=== PATIENT | female | born 1950 | race Caucasian/White ===

== ENCOUNTER 2021-01-22 06:45 | Day surgery (SDC) | payer MEDICARE, MEDICAID ==
[2021-01-22] VITALS (8 sets, daily range): BP systolic 100–128; BP diastolic 55–77
[~2021-01-22] VITALS: Ht 154.9 cm; Wt 83.9 kg
[~2021-01-22 06:45] MED LIST: ASPI81TA52 PO; BUPIVAcaine/PF 2.5 mg/ml (0.25%) 30ml vial ONE; DILT-103 PO; FLUT16SP26 NAS; FLUT1BLS3 PO; LEVA15HF6 PO; LEVO100T9 PO; LISI10TA27 PO; MONT10TA32 PO; MORP60TA77 PO; POTA8TAB3 PO; PREG75CA75 PO; TAMO20TA4 PO; TIOT4MIS2 PO; VENL75CA61 PO; clindamycin-Cleocin 900mg/D5W 50 ML IV ONE; famotidine 20mg tablet PO ONE; ringers solution, lacted 1,000 ML IV SCH
[2021-01-22 08:58] LABS: BASOPHILS # (AUTO) 0.1 X10'3 (0-0.2); BASOPHILS % (AUTO) 1.2 % (0-1); EOSINOPHILS # (AUTO) 0.5 X10'3 (0-0.9); LYMPHOCYTES % (AUTO) 25.5 % (21-51); MEAN CORPUSCULAR HEMOGLOBIN 29.2 PG (27.0-31.0); MEAN CORPUSCULAR HGB CONC 34.3 g/dL (33.0-36.5); MEAN CORPUSCULAR VOLUME 85.2 FL (78-98); MEAN PLATELET VOLUME 7.6 FL (7.4-10.4); MONOCYTES # (AUTO) 0.6 X10'3 (0-0.9); NEUTROPHILS # (AUTO) 4.6 X10'3 (1.8-7.7); NEUTROPHILS % (AUTO) 59.3 % (42-75); PRE OP HEMATOCRIT 33.7 % (35.0-45.0); PRE OP HEMOGLOBIN 11.5 g/dL (12.0-16.0); PRE OP PLATELET COUNT 280 X10'3 (140-440); RED BLOOD COUNT 3.95 X10'6 (4.20-5.60); RED CELL DISTRIBUTION WIDTH 14.7 % (11.5-14.5)
[2021-01-22 09:11] LABS: ALBUMIN 3.3 G/DL (3.4-5.0); ALKALINE PHOSPHATASE 97 IU/L (46-116); BLOOD UREA NITROGEN 20 MG/DL (7-18); BUN/CREATININE RATIO 28.6 (6.6-38.0); CALCIUM 8.3 MG/DL (8.5-10.1); CHLORIDE 105 MMOL/L (99-107); PRE OP ALT 15 U/L (30-65); PRE OP ANION GAP 8 (8-16); PRE OP AST 17 U/L (10-37); PRE OP BILIRUB, TOTAL 0.2 MG/DL (0.0-1.0); PRE OP GLUCOSE 95 MG/DL (70-104); PRE OP POTASSIUM 4.1 MMOL/L (3.4-5.1); PRE OP SODIUM 141 MMOL/L (135-145); TOTAL CARBON DIOXIDE 28.4 MMOL/L (24-32); TOTAL PROTEIN 6.5 G/DL (6.4-8.2); eGFR 83 ML/MIN
[2021-01-22] MEDS ORDERED: hydrALAZINE 20mg/ml inj. IV PRN (10:45)
[2021-01-22] MEDS ORDERED: acetaminophen 1,000mg/100ml IV 100 ML IV PRN (10:45)
[2021-01-22] MEDS ORDERED: ondansetron/PF 4mg/2ml inj IV PRN (10:45)
[2021-01-22] MEDS ORDERED: morphine 4 MG/ML inj SYRINge IV PRN (10:45)
[2021-01-22] MEDS ORDERED: labetalol 20mg/4ml (5mg/ml) syringe IV PRN (10:45)
[2021-01-22] MEDS ORDERED: morphine 2 MG/ML inj. syringe IV PRN (10:45)
[2021-01-22] MEDS ORDERED: meperidine/PF 25mg/ml syringe IV PRN (10:45)
[2021-01-22] MEDS ORDERED: HYDROmorphone/PF 0.2 MG/ML SYRINGE IV PRN ×2 (10:45)
[2021-01-22] MEDS ORDERED: ringers solution, lacted 1,000 ML IV SCH (10:45)
[2021-01-22] MEDS ORDERED: proCHLORperazine 10 MG/2 ml inj IV PRN (10:45)
[2021-01-22] MEDS ORDERED: fentaNYL/PF 50MCG/1 ML 2ML syringe ONE (10:48)
[2021-01-22] MEDS ORDERED: midazolam 1 mg/ML 2ml injection ONE (10:51)
[2021-01-22] MEDS ORDERED: LIDOcaine 0.5% (5mg/ml) 50ml vial ONE (10:57)
[2021-01-22] MEDS ORDERED: propofol inj 20 ML IV ONE (10:57)
--- NOTE | 2021-01-22 11:15 | NUR ---
ADMITTED TO PACU FROM OR ACCOMPANIED BY ANESTHESIA. INTIAL PHYSICAL ASSESSMENT DONE AND RECORDED. REPORT RECEIVED FROM ANESTHESIA.
--- NOTE | 2021-01-22 12:30 | NUR ---
DISCHARGE CRITERIA MET, DISCHARGE INSTRUCTIONS GIVEN, DEMONSTRATES VERBAL UNDERSTANDING. DISCHARGED HOME IN GOOD CONDITION.
== END 2021-01-22 12:30 | disposition home or self-care (01) ==
LOC: PAS 06:45
PROVIDERS: ATTEND Orthopaedic Surgery Hand Surgery
DX: G56.01 Carpal tunnel syndrome, right upper limb (principal); J45.909 Unspecified asthma, uncomplicated; G47.33 Obstructive sleep apnea (adult) (pediatric); I10 Essential (primary) hypertension; G25.81 Restless legs syndrome; M18.11 Unilateral primary osteoarthritis of first carpometacarpal joint, right hand; M19.072 Primary osteoarthritis, left ankle and foot; M19.071 Primary osteoarthritis, right ankle and foot; Z85.3 Personal history of malignant neoplasm of breast; Z79.899 Other long term (current) drug therapy; Z90.710 Acquired absence of both cervix and uterus; Z98.890 Other specified postprocedural states; Z96.653 Presence of artificial knee joint, bilateral; Z88.0 Allergy status to penicillin; Z88.8 Allergy status to other drugs, medicaments and biological substances
CPT/HCPCS: 29848; 36415; 80053; 85025; 93005; J2001; J2250; J2704; J3010; J3490; A4215; A6449; A7000; J7120

== ENCOUNTER 2021-03-05 06:17 | Day surgery (SDC) | payer MEDICARE, MEDICAID ==
[2021-02-16 11:18] LABS: BASOPHILS # (AUTO) 0.1 X10'3 (0-0.2); BASOPHILS % (AUTO) 0.8 % (0-1); EOSINOPHILS # (AUTO) 0.4 X10'3 (0-0.9); EOSINOPHILS % (AUTO) 6.1 % (0-6); LYMPHOCYTES # (AUTO) 0.9 X10'3 (1.1-4.8); LYMPHOCYTES % (AUTO) 13.4 % (21-51); MEAN CORPUSCULAR HEMOGLOBIN 28.4 PG (27.0-31.0); MEAN CORPUSCULAR HGB CONC 33.8 g/dL (33.0-36.5); MEAN PLATELET VOLUME 7.1 FL (7.4-10.4); MONOCYTES # (AUTO) 0.5 X10'3 (0-0.9); NEUTROPHILS # (AUTO) 4.6 X10'3 (1.8-7.7); NEUTROPHILS % (AUTO) 71.7 % (42-75); PRE OP HEMATOCRIT 33.2 % (35.0-45.0); PRE OP HEMOGLOBIN 11.2 g/dL (12.0-16.0); PRE OP PLATELET COUNT 308 X10'3 (140-440); RED BLOOD COUNT 3.96 X10'6 (4.20-5.60); RED CELL DISTRIBUTION WIDTH 15.2 % (11.5-14.5)
[2021-02-16 11:40] LABS: PRE OP PROTIME 10.5 SECONDS (9.0-12.0)
[2021-02-16 11:43] LABS: ALBUMIN 3.3 G/DL (3.4-5.0); ALKALINE PHOSPHATASE 94 IU/L (46-116); BLOOD UREA NITROGEN 16 MG/DL (7-18); BUN/CREATININE RATIO 22.9 (6.6-38.0); CALCIUM 8.5 MG/DL (8.5-10.1); CHLORIDE 103 MMOL/L (99-107); PRE OP ALT 13 U/L (30-65); PRE OP ANION GAP 7 (8-16); PRE OP AST 19 U/L (10-37); PRE OP BILIRUB, TOTAL 0.2 MG/DL (0.0-1.0); PRE OP GLUCOSE 95 MG/DL (70-104); PRE OP POTASSIUM 4.5 MMOL/L (3.4-5.1); PRE OP SODIUM 141 MMOL/L (135-145); TOTAL CARBON DIOXIDE 30.6 MMOL/L (24-32); TOTAL PROTEIN 6.6 G/DL (6.4-8.2); eGFR 83 ML/MIN
[~2021-03-05] VITALS: Ht 154.9 cm; Wt 91.0 kg
[2021-03-05] VITALS (8 sets, daily range): BP systolic 114–144; BP diastolic 56–83
[~2021-03-05 06:17] MED LIST changes: -BUPIVAcaine/PF 2.5 mg/ml (0.25%) 30ml vial ONE; +BUPIVAcaine/PF 2.5mg/ml (0.25%) 10ml vial ONE; +FLUT1BLS3 INH; -FLUT1BLS3 PO; +LEVA15HF6 INH; -LEVA15HF6 PO; +VENL-191 PO; +cefazolin/dext.iso 2gm/100ml IV ONE; -clindamycin-Cleocin 900mg/D5W 50 ML IV ONE; +levalbuterol 1.25mg/0.5ml nebule IH PRN
[2021-03-05] MEDS ORDERED: morphine 4 MG/ML inj SYRINge IV PRN (09:10)
[2021-03-05] MEDS ORDERED: meperidine/PF 25mg/ml syringe IV PRN ×3 (09:10)
[2021-03-05] MEDS ORDERED: proCHLORperazine 10 MG/2 ml inj IV PRN (09:10)
[2021-03-05] MEDS ORDERED: ondansetron/PF 4mg/2ml inj IV PRN (09:10)
[2021-03-05] MEDS ORDERED: morphine 2 MG/ML inj. syringe IV PRN (09:10)
[2021-03-05] MEDS ORDERED: ringers solution, lacted 1,000 ML IV SCH (09:10)
[2021-03-05] MEDS ORDERED: midazolam 1 mg/ML 2ml injection ONE (09:42)
[2021-03-05] MEDS ORDERED: fentaNYL/PF 50MCG/1 ML 2ML syringe ONE (09:42)
--- NOTE | 2021-03-05 10:05 | NUR ---
Received from OR via [facility], accompanied by Anesthesiologist BOYD and report given by Anesthesiologist. PATIENT WAKING UP, NO S/S OF PAIN, V/S WNL, CSM INTACT,drsg to l wrist - CDI, PIV TO LUE, ICE TO EXTREMITY.
--- NOTE | 2021-03-05 11:25 | NUR ---
ALL DISCHARGE CRITERIA HAS BEEN MET. VSS, DENIES PAIN, CSM INTACT, DRSG TO LEFT HAND-CDI, ABLE TO SAFELY AMBULATE AND TRANSFER SELF. IV TAKEN OUT WITHOUT ANY COMPLICATIONS. ALL DISCHARGE INSTRUCTIONS COVERED WITH PATIENT AND ALL QUESTIONS ANSWERED. PATIENT TAKEN OUT VIA WHEELCHAIR TO PERSONAL VEHICLE WHERE FAMILY/FRIEND DROVE PATIENT HOME.
== END 2021-03-05 11:25 | disposition home or self-care (01) ==
LOC: PAS 06:17
PROVIDERS: ATTEND Orthopaedic Surgery Hand Surgery
DX: G56.02 Carpal tunnel syndrome, left upper limb (principal); M19.072 Primary osteoarthritis, left ankle and foot; M19.071 Primary osteoarthritis, right ankle and foot; M18.11 Unilateral primary osteoarthritis of first carpometacarpal joint, right hand; I10 Essential (primary) hypertension; G47.30 Sleep apnea, unspecified; E66.9 Obesity, unspecified; Z68.37 Body mass index [BMI] 37.0-37.9, adult; J45.909 Unspecified asthma, uncomplicated; E03.9 Hypothyroidism, unspecified; Z86.73 Personal history of transient ischemic attack (TIA), and cerebral infarction without residual deficits; Z85.3 Personal history of malignant neoplasm of breast; Z88.0 Allergy status to penicillin; Z88.8 Allergy status to other drugs, medicaments and biological substances; Z79.899 Other long term (current) drug therapy; Z79.82 Long term (current) use of aspirin; Z90.710 Acquired absence of both cervix and uterus; Z98.890 Other specified postprocedural states; Z96.653 Presence of artificial knee joint, bilateral; Z79.01 Long term (current) use of anticoagulants
CPT/HCPCS: 29848; 36415; 71046; 80053; 82948; 85025; 85610; 85730; J2250; J3010; J3490; Z7506; Z7512; A4215; A7000; J7120

== ENCOUNTER 2021-05-25 07:06 | Inpatient (IN) | payer MEDICARE, MEDICAID ==
[2021-05-25] VITALS (16 sets, daily range): BP systolic 115–152; BP diastolic 58–84
[~2021-05-25] VITALS: Ht 154.9 cm; Wt 91.4 kg
[~2021-05-25 07:06] MED LIST changes: -BUPIVAcaine/PF 2.5mg/ml (0.25%) 10ml vial ONE; -LEVA15HF6 INH; +MONT-40 PO; -MONT10TA32 PO; -POTA8TAB3 PO; +POTA8TAB69 PO; -PREG75CA75 PO; -VENL-191 PO; +albuterol 2.5 MG/3 ML nebule NEB ONE; -cefazolin/dext.iso 2gm/100ml IV ONE; +cefazolin/dext.iso 2gm/50ml 50 ML IV ONE; -levalbuterol 1.25mg/0.5ml nebule IH PRN
[2021-05-25] MEDS ORDERED: CLINDAMYCIN/D5W 900mg/50ml 50 ML IV ONE (08:20)
[2021-05-25] MEDS ORDERED: levalbuterol 1.25mg/0.5ml nebule IH ONE (09:05)
[2021-05-25] MEDS ORDERED: bacitracin 15gm ointment TP ONE (11:24)
[2021-05-25] MEDS ORDERED: sevoflurane 250ml liquid IH ONE (11:43)
[2021-05-25] MEDS ORDERED: midazolam 1 mg/ML 2ml injection ONE (11:53)
[2021-05-25] MEDS ORDERED: fentaNYL/PF 50MCG/1 ML 2ML syringe ONE (11:53)
[2021-05-25] MEDS ORDERED: propofol inj 20 ML IV ONE (11:55)
[2021-05-25] MEDS ORDERED: ROPIVAcaine 0.5% (5mg/ml) 30ml vial ONE (12:00)
[2021-05-25] MEDS ORDERED: morphine 2 MG/ML inj. syringe IV PRN (13:20)
[2021-05-25] MEDS ORDERED: proCHLORperazine 10 MG/2 ml inj IV PRN (13:20)
[2021-05-25] MEDS ORDERED: ondansetron/PF 4mg/2ml inj IV PRN ×2 (13:20→16:05)
[2021-05-25] MEDS ORDERED: meperidine/PF 25mg/ml syringe IV PRN ×3 (13:20)
[2021-05-25] MEDS ORDERED: morphine 4 MG/ML inj SYRINge IV PRN (13:20)
[2021-05-25] MEDS ORDERED: ringers solution, lacted 1,000 ML IV SCH (13:20)
--- NOTE | 2021-05-25 15:48 | NUR ---
Received from OR via , accompanied by Anesthesiologist DR NIX and report given by Anesthesiolgist. AWAKENS TO VOICE. VITALS STABLE. SPLINT DI. KIARA PAIN. TOES WARM AND PINK.
[2021-05-25] MEDS ORDERED: acetaminophen 325mg tablet PO PRN (16:05)
[2021-05-25] MEDS ORDERED: bisacodyl 10mg suppository rectal RC PRN (16:05)
[2021-05-25] MEDS ORDERED: HYDROcodone/acetaminophen 10/325mg tab PO PRN ×2 (16:05)
[2021-05-25] MEDS ORDERED: diphenhydrAMINE 25mg capsule PO PRN (16:05)
[2021-05-25] MEDS ORDERED: magnesium hydroxide 30ml (MOM) UD suspension PO PRN (16:05)
--- NOTE | 2021-05-25 16:48 | NUR ---
Report called to receiving nurse. Transferred via [facility] . Special Issues communicated to receiving nurse. AWAKE AND ORIENTED. VITALS STABLE. DRESSING DI. KIARA PAIN. TO SURGICAL RM 350A AT [facility] TIME.
[2021-05-25] MEDS: aspirin 81mg tab.chew PO SCH ×2 (17:51→21:30)
--- NOTE | 2021-05-25 18:15 | NUR ---
Problems reprioritized. Patient report given, questions answered & plan of care reviewed with Destin TRACEY traveler.
--- NOTE | 2021-05-25 18:37 | NUR ---
Pt received from recovery, report given by Tha TRACEY from recovery. pt is A & O x4 and in no apparent distress. pt tucked in, IV fluids are running, surgical site looks dry & intact, pulses palpable. pt is no pain, received popliteal block. No N/V, ice chips given no pain meds needed. Pt set for post ops, call light within reach, bed locked and low, foot elevated with a pillow. Phone at reach.
[2021-05-25] MEDS ORDERED: sennosides 8.6mg tablet PO SCH (21:00)
[2021-05-25] MEDS: gabapentin 300mg capsule PO SCH (22:54)
[2021-05-26] VITALS: BP 115/63
[2021-05-26] MEDS: morphine ER 30mg tablet PO SCH ×2 (00:27→09:15)
--- NOTE | 2021-05-26 00:32 | NUR ---
late entry pts son stated pt is supposed to wear a cpap machine for skl Addendum: 05/26/21 at 0034 by Sneha Sanderson RN sleep apnea. pt states she does not wear a cpap a Addendum: 05/26/21 at 0036 by Sneha Sanderson RN does not wear a cpap at home. pt has on o2 2l nc . pt upset and adamant that she must take her morphine er 60mg tab tonight for hx of back and neck pain. pt states she has been on morphine for a while . charge dayanara spoke to pts doctor and medication ordered . pt informed
[2021-05-26 06:49] LABS: BASOPHILS % (AUTO) 0 % (0-1); EOSINOPHILS % (AUTO) 0 % (0-6); HEMOGLOBIN 10.5 g/dl (12.0-16.0); LYMPHOCYTES # (AUTO) 0.5 X10'3 (1.1-4.8); LYMPHOCYTES % (AUTO) 5.5 % (21-51); MEAN CORPUSCULAR HGB CONC 33.9 g/dL (33.0-36.5); MEAN CORPUSCULAR VOLUME 85.6 FL (78-98); MEAN PLATELET VOLUME 7.7 FL (7.4-10.4); MONOCYTES # (AUTO) 0.5 X10'3 (0-0.9); MONOCYTES % (AUTO) 5.4 % (2-12); NEUTROPHILS # (AUTO) 8.9 X10'3 (1.8-7.7); NEUTROPHILS % (AUTO) 89.1 % (42-75); PLATELET COUNT 248 X10'3 (140-440); RED BLOOD COUNT 3.62 X10'6 (4.20-5.60); RED CELL DISTRIBUTION WIDTH 14.5 % (11.5-14.5)
[2021-05-26 08:00] VITALS: BP 127/65
[2021-05-26] MEDS: gabapentin 300mg capsule PO SCH ×2 (09:15→12:42)
[2021-05-26] MEDS: aspirin 81mg tab.chew PO SCH ×2 (09:15→12:42)
[2021-05-26 11:00] VITALS: BP 106/42
--- NOTE | 2021-05-26 11:31 | NUR ---
PAGER ID: [phone] MESSAGE: josé miguel Hussein 350A- pt states she is ready to be DC, Dr. Vinson said he spoke to you and he was OK with you Discharging pt. Please advise. Thank you so much. Joana Kendrick [id number] [facility]
--- NOTE | 2021-05-26 13:03 | NUR ---
PAGER ID: [phone] MESSAGE: Angelika Jovita 350A- My apologies, pt. is upset and wants to go home. She needs to go home and help care for her and animals. Thank you. Joana diaz
[2021-05-26] MEDS ORDERED: gabapentin capsule PO (13:34)
[2021-05-26] MEDS ORDERED: albuterol 2.5 MG/3 ML nebule NEB SCH (15:00)
[2021-05-26] MEDS ORDERED: ipratropium 0.5 MG/2.5ML nebule IH SCH (15:00)
--- NOTE | 2021-05-26 15:30 | NUR ---
Pt DC to home. Pt is A & O x4 and in no apparent distress. Pt verbalizes understanding on all DC orders. Pt already has DC orders from Dr Hartley from pre-op and medications. Pt has a walker on bed side, she states she has no pain and is ready to go home. She is tolerating regular food and fluids without any problems. pt's IV DC intact. Pt dressed herself and was wheeled to the front where her son picked her up.
[2021-05-26] MEDS ORDERED: morphine ER 30mg tablet PO SCH (20:00)
[2021-05-26] MEDS ORDERED: budesonide 0.5mg/2ml UD nebule IH SCH (21:00)
[2021-05-26] MEDS ORDERED: montelukast 10mg tablet PO SCH (21:00)
[2021-05-27] MEDS ORDERED: potassium chloride 8mEq ER tablet PO SCH (08:00)
[2021-05-27] MEDS ORDERED: lisinopril 10 MG tablet PO SCH (08:00)
[2021-05-27] MEDS ORDERED: VILANTEROL INH SCH (08:00)
[2021-05-27] MEDS ORDERED: aspirin 81mg, enteric-coated 1 TAB TABLET.DR PO SCH (08:00)
[2021-05-27] MEDS ORDERED: TIOTROPIUM BROMIDE PO SCH (08:00)
[2021-05-27] MEDS ORDERED: venlafaxine XR 75mg capsule (Q24H) PO SCH (08:00)
[2021-05-27] MEDS ORDERED: FLUTICASONE INH SCH (08:00)
[2021-05-27] MEDS ORDERED: diltiazem CD 120mg capsule (once-daily) PO SCH (08:00)
[2021-05-27] MEDS ORDERED: fluticasone nasal spray 16GM bottle NS SCH (08:00)
[2021-05-27] MEDS ORDERED: tamoxifen 10mg tablet PO SCH (08:00)
[2021-05-27] MEDS ORDERED: levoTHYROXINE 100mcg tablet PO SCH (08:00)
[2021-05-27] MEDS ORDERED: acetaminophen 325mg tablet PO PRN (16:05)
== END 2021-05-26 15:30 | disposition home or self-care (01) | DRG 469 ==
LOC: PAS 07:06 → EDSTATUS 10:00 → SUR 3N 16:16
PROVIDERS: ADMIT Podiatrist Foot & Ankle Surgery; ATTEND Podiatrist Foot & Ankle Surgery
PROC: 3E0T3BZ Introduction of Anesthetic Agent into Peripheral Nerves and Plexi, Percutaneous Approach (ICD-10-PCS; 2021-05-25)
PROC: 0SRF0J9 Replacement of Right Ankle Joint with Synthetic Substitute, Cemented, Open Approach (ICD-10-PCS; principal; 2021-05-25 11:43)
DX: M19.071 Primary osteoarthritis, right ankle and foot (principal); G62.9 Polyneuropathy, unspecified; G89.4 Chronic pain syndrome; Z96.653 Presence of artificial knee joint, bilateral; Z20.822 Contact with and (suspected) exposure to COVID-19; I10 Essential (primary) hypertension; J44.9 Chronic obstructive pulmonary disease, unspecified; M65.871 Other synovitis and tenosynovitis, right ankle and foot; Z79.810 Long term (current) use of selective estrogen receptor modulators (SERMs); Z79.899 Other long term (current) drug therapy; Z85.3 Personal history of malignant neoplasm of breast; Z90.710 Acquired absence of both cervix and uterus; Z88.0 Allergy status to penicillin; Z88.8 Allergy status to other drugs, medicaments and biological substances; Z79.82 Long term (current) use of aspirin
CPT/HCPCS: 36415; 73600; 76000; 82948; 85025; 87081; 87635; 93306; 97116; 97161; 97530; 97535; A4618; A6223; A6449; A7000; C1713; C1776; C9803; G0378; J2250; J2704; J2795; J3010; J3490; J7120

== ENCOUNTER 2024-07-08 10:43 | Day surgery (SDC) | payer MEDICARE, MEDICAID ==
[2024-07-06 14:13] LABS: BASOPHILS % (AUTO) 0.7 % (0-1); EOSINOPHILS # (AUTO) 0.3 X10'3 (0-0.9); EOSINOPHILS % (AUTO) 5.3 % (0-6); HEMATOCRIT 38.4 % (35.0-45.0); LYMPHOCYTES % (AUTO) 17.1 % (21-51); MEAN CORPUSCULAR HEMOGLOBIN 30.8 PG (27.0-31.0); MEAN CORPUSCULAR HGB CONC 33.8 g/dL (33.0-36.5); MEAN CORPUSCULAR VOLUME 91.2 FL (78-98); MONOCYTES # (AUTO) 0.5 X10'3 (0-0.9); MONOCYTES % (AUTO) 8.9 % (2-12); NEUTROPHILS # (AUTO) 4.1 X10'3 (1.8-7.7); PLATELET COUNT 313 X10'3 (140-440); RED BLOOD COUNT 4.21 X10'6 (4.20-5.60); RED CELL DISTRIBUTION WIDTH 14.7 % (11.5-14.5); WHITE BLOOD COUNT 6.1 X10'3 (4.5-11.0)
[2024-07-06 14:28] LABS: ALANINE AMINOTRANSFERASE 24 U/L (12-78); ALBUMIN 3.6 G/DL (3.4-5.0); ALBUMIN/GLOBULIN RATIO 1.1 (1.1-1.5); ALKALINE PHOSPHATASE 134 IU/L (46-116); ANION GAP 4 (8-16); ASPARTATE AMINO TRANSFERASE 23 U/L (10-37); BILIRUBIN,TOTAL 0.4 MG/DL (0.1-1.0); BLOOD UREA NITROGEN 12 MG/DL (7-18); BUN/CREATININE RATIO 17.1 (10.0-20.0); CALCIUM 8.5 MG/DL (8.5-10.1); CHLORIDE 106 MMOL/L (99-107); GLUCOSE 96 MG/DL (70-104); SODIUM 142 MMOL/L (135-145); TOTAL CARBON DIOXIDE 31.6 MMOL/L (24-32); eGFR 82 ML/MIN
[~2024-07-08] VITALS: Ht 154.9 cm; Wt 93.5 kg
[2024-07-08] VITALS (15 sets, daily range): BP systolic 94–147; BP diastolic 47–85; PULSE 88–108; RESP 14–20; TEMP 98.1; O2SAT 93–97
[~2024-07-08 10:43] MED LIST changes: +ANAS1TAB10 PO; -ASPI81TA52 PO; +BUDE10.7 IH; +CHOL100053 PO; -FLUT16SP26 NAS; -FLUT1BLS3 INH; +FLUT9.9S BOTHNARES; +LEVA15HF6 INH; -LISI10TA27 PO; +LYR25C PO; -MONT-40 PO; +MONT-48 PO; -MORP60TA77 PO; +POTA-208 PO; -POTA8TAB69 PO; -TAMO20TA4 PO; -TIOT4MIS2 PO; -albuterol 2.5 MG/3 ML nebule NEB ONE; +ceFAZolin 2gm in dextrose, iso 50 ML IV ONE; -cefazolin/dext.iso 2gm/50ml 50 ML IV ONE; -famotidine 20mg tablet PO ONE; -ringers solution, lacted 1,000 ML IV SCH
[2024-07-08] MEDS ORDERED: BUPIVAcaine/PF 2.5mg/ml (0.25%) 10ml vial ONE (10:56)
[2024-07-08] MEDS ORDERED: bacitracin 15gm ointment TP ONE ×2 (10:56→10:57)
[2024-07-08] MEDS: famotidine 20mg tablet PO ONE (11:37)
[2024-07-08] MEDS: ringers solution, lacted 1,000 ML IV SCH (11:38)
[2024-07-08 11:40] LABS: BILIRUBIN,URINE NEGATIVE (Neg); CLARITY,URINE CLEAR (Clear); COLOR,URINE YELLOW (Yellow); GLUCOSE, URINE NEGATIVE (Neg); KETONES,URINE NEGATIVE (Neg); LEUKOCYTE ESTERASE ,URINE NEGATIVE (Neg); NITRITES, URINE NEGATIVE (Neg); OCCULT BLOOD,URINE NEGATIVE (Neg); PROTEIN,URINE NEGATIVE (Neg); UROBILINOGEN,URINE 0.2 E.U/dL (0.2-1.0)
[2024-07-08 11:42] LABS: UA COLLECTION TYPE NON-SPECIFIED
[2024-07-08] MEDS ORDERED: sevoflurane 250ml liquid IH ONE (13:19)
[2024-07-08] MEDS ORDERED: fentaNYL/PF 50MCG/1 ML 2ML syringe ONE ×2 (13:22→17:17)
[2024-07-08] MEDS ORDERED: midazolam 1 mg/ML 2ml injection ONE (13:23)
[2024-07-08] MEDS ORDERED: ROPIVAcaine 0.5% (5mg/ml) 30ml vial ONE ×2 (13:29)
[2024-07-08] MEDS ORDERED: propofol inj 20 ML IV ONE (15:28)
[2024-07-08] MEDS ORDERED: ondansetron/PF 4mg/2ml inj ONE (15:28)
[2024-07-08] MEDS ORDERED: dexamethasone sod phosphate 4mg/ml inj. ONE (15:28)
[2024-07-08] MEDS ORDERED: proCHLORperazine 10 MG/2 ml inj IV PRN (15:35)
[2024-07-08] MEDS ORDERED: meperidine/PF 25mg/ml syringe IV PRN ×3 (15:35)
[2024-07-08] MEDS ORDERED: morphine 2 MG/ML inj. syringe IV PRN (15:35)
[2024-07-08] MEDS ORDERED: ringers solution, lacted 1,000 ML IV SCH (15:35)
[2024-07-08] MEDS ORDERED: labetalol 20mg/4ml (5mg/ml) syringe IV PRN (15:35)
[2024-07-08] MEDS ORDERED: ondansetron/PF 4mg/2ml inj IV PRN (15:35)
[2024-07-08] MEDS ORDERED: morphine 4 MG/ML inj SYRINge IV PRN (15:35)
== END 2024-07-08 20:22 | disposition home or self-care (01) ==
LOC: PAS 10:43
PROVIDERS: ATTEND Podiatrist Foot & Ankle Surgery
DX: T84.84XA Pain due to internal orthopedic prosthetic devices, implants and grafts, initial encounter (principal); M21.41 Flat foot [pes planus] (acquired), right foot; M20.41 Other hammer toe(s) (acquired), right foot; M25.871 Other specified joint disorders, right ankle and foot; M21.071 Valgus deformity, not elsewhere classified, right ankle; G89.18 Other acute postprocedural pain; Z79.82 Long term (current) use of aspirin; Z79.890 Hormone replacement therapy; Z79.899 Other long term (current) drug therapy; Z90.710 Acquired absence of both cervix and uterus; Z98.890 Other specified postprocedural states; Z88.0 Allergy status to penicillin; Y83.8 Other surgical procedures as the cause of abnormal reaction of the patient, or of later complication, without mention of misadventure at the time of the procedure; Y92.89 Other specified places as the place of occurrence of the external cause
CPT/HCPCS: 20680; 28285; 28300; 28730; 38220; 64447; 64450; 73610; 73630; 76942; 80053; 81003; 82948; 85025; A4615; A4618; A6223; A6253; A6402; A6449; A7000; C1713; C1762; J0690; J1100; J2250; J2405; J2704; J2795; J3010; J3490; J7030; J7120; Z7506; Z7508; Z7512; Z7610; 36415